=== PATIENT | male | born 1925 | race Caucasian/White ===

== ENCOUNTER 2017-05-19 10:52 | Emergency (ER) | payer MEDICARE, OTHER ==
[~2017-05-19] VITALS: Ht 175.3 cm; Wt 110.5 kg
[2017-05-19] MEDS ORDERED: FURO20 PO (11:37)
[2017-05-19] MEDS ORDERED: SIMV-259 PO (11:37)
[2017-05-19] MEDS ORDERED: [UNRECOGNIZED DRUG - REMARK] SQ (11:37)
[2017-05-19] MEDS ORDERED: METF500T4 PO (11:37)
[2017-05-19] MEDS ORDERED: ASPI81 PO ×2 (11:37→12:36)
[2017-05-19] MEDS ORDERED: OMEP20 PO ×2 (11:37→12:36)
[2017-05-19] MEDS ORDERED: ATOR20TA86 PO (12:36)
[2017-05-19] MEDS ORDERED: FURO40 PO (12:36)
[2017-05-19] MEDS ORDERED: AMIT25TA9 PO (12:36)
[2017-05-19] MEDS ORDERED: TAMS0.4C32 PO (12:36)
[2017-05-19] MEDS ORDERED: VITAD1000 PO (12:36)
[2017-05-19] MEDS ORDERED: ALLO300 PO (12:36)
[2017-05-19] MEDS ORDERED: VALS40TA4 PO (12:36)
[2017-05-19 12:50] VITALS: BP 105/82
== END 2017-05-19 13:22 | disposition home or self-care (01) ==
LOC: EMS 10:54
DX: R15.9 Full incontinence of feces (principal); R32 Unspecified urinary incontinence; E11.9 Type 2 diabetes mellitus without complications; I10 Essential (primary) hypertension; Z79.4 Long term (current) use of insulin; Z76.82 Awaiting organ transplant status; W16.012A Fall into swimming pool striking water surface causing other injury, initial encounter; Y93.01 Activity, walking, marching and hiking; Y92.34 Swimming pool (public) as the place of occurrence of the external cause; Y99.8 Other external cause status
CPT/HCPCS: 99283